=== PATIENT | female | born 1960 | race Caucasian/White ===

== ENCOUNTER 2018-01-26 20:30 | Outpatient (CLI) | payer MEDICARE | END 2018-01-26 20:31 | disposition home or self-care (01) | LOC: SLEEPLAB 20:30 | PROVIDERS: ATTEND Family Medicine | DX: G47.33 Obstructive sleep apnea (adult) (pediatric) (principal) | CPT/HCPCS: 95810 ==

== ENCOUNTER 2018-02-26 19:30 | Outpatient (CLI) | payer MEDICARE, MEDICAID | END 2018-02-26 19:31 | disposition home or self-care (01) | LOC: SLEEPLAB 19:30 | PROVIDERS: ATTEND Family Medicine | DX: G47.33 Obstructive sleep apnea (adult) (pediatric) (principal) | CPT/HCPCS: 95811 ==

== ENCOUNTER 2018-06-21 10:30 | Outpatient (CLI) | payer MEDICARE, MEDICAID ==
--- NOTE | 2018-06-21 11:51 | MMO ---
Bilateral MAMMO Bilat Screen DDI. CLINICAL HISTORY: Patient is 57 years old and is seen for screening. The patient has no family history of breast cancer. The patient has no personal history of cancer. The patient has a history of Implants in 2012. There are bilateral retro-pectoral saline implants VIEWS: The views performed were: bilateral craniocaudal; bilateral mediolateral oblique; and bilateral Implant displaced. This study has been interpreted with the assistance of computer-aided detection. MAMMOGRAM FINDINGS: There are scattered fibroglandular densities. Finding 1: Normal implants are present.. Finding 2: There is a mass with circumscribed margins and associated coarse popcorn-like calcifications and biopsy clip seen in the lower-inner region of the right breast. There are no suspicious masses, suspicious calcifications, or new areas of architectural distortion. IMPRESSION: THERE IS NO MAMMOGRAPHIC EVIDENCE OF MALIGNANCY. A ROUTINE FOLLOW-UP MAMMOGRAM IN 1 YEAR IS RECOMMENDED. ACR BI-RADS Category 2 - Benign finding MAMMOGRAPHY NOTE: 1. A negative mammogram report should not delay a biopsy if a dominant of clinically suspicious mass is present. 2. Approximately 10% to 15% of breast cancers are not detected by mammography. 3. Adenosis and dense breasts may obscure an underlying neoplasm.
--- NOTE | 2018-06-21 16:43 | MRI ---
EXAM: Cervical spine MRI Without contrast. HISTORY: Cervalgia COMPARISON: None. FINDINGS: Multiplanar multisequence MRI examination of the cervical spine is performed. There is a 1.7 x 1.7 x 4.1 cm diameter arachnoid cyst posteriorly just to the left of midline in the posterior fossa. No significant malalignment. No evidence for significant abnormal marrow signal. No evidence for spinal cord mass or abnormal signal within the spinal cord. Visualized lower brain and neck soft tissues show no significant acute process. C2-C3 level: No significant central canal, lateral recess, or foraminal stenosis. C3-C4 level: No significant central canal, lateral recess, or foraminal stenosis. C4-C5 level: Diffuse disc osteophytosis with minimal indention of the ventral thecal sac and mild rig ht foraminal stenosis. C5-C6 level: Disc osteophytosis more marked in the left paracentral region with minimal ventral later al recess stenosis and bilateral foraminal stenosis worse on the left side. C6-C7 level: Diffuse disc osteophytosis and facet arthrosis. Bilateral foraminal stenosis and mild bi lateral recess stenosis. C7-T1 level: No significant central canal, lateral recess, or foraminal stenosis. IMPRESSION: Multilevel variable severity disc osteophytosis with mostly lateral recess and foraminal stenosis. Left posterior fossa arachnoid cyst adjacent to the midline.
== END 2018-06-21 10:31 | disposition home or self-care (01) ==
LOC: BICMRI 10:30 → SCSMAMMO 10:31
PROVIDERS: ATTEND Family Medicine
DX: Z12.31 Encounter for screening mammogram for malignant neoplasm of breast (principal); M54.2 Cervicalgia; M25.78 Osteophyte, vertebrae; M48.02 Spinal stenosis, cervical region; G93.0 Cerebral cysts; Z98.82 Breast implant status
CPT/HCPCS: 72141; 77067

== ENCOUNTER 2018-10-02 14:55 | Emergency (ER) | payer MEDICARE, MEDICAID ==
[2018-10-02] MEDS ORDERED: Bupivacaine 0.5% 10 ML VIAL ONE (15:12)
[2018-10-02] MEDS ORDERED: Ketorolac Tromethamine 30 MG/ML VIAL ONE (15:14)
--- NOTE | 2018-10-02 15:39 | RAD ---
Exam:3 views left hand HISTORY: Fracture. Pain. COMPARISON: None FINDINGS: Joint spaces are preserved. Nondisplaced fracture involving the distal phalanx of the third digit. Soft tissue swelling at the distal aspect of the third digit. Additional fractures are not appreciated. Nonspecific lucency at the base of the first metacarpal and midportion of the scaphoid b one. IMPRESSION: Nondisplaced fracture involving the distal aspect of the third digit. Associated soft tis shala swelling.
== END 2018-10-02 16:30 | disposition home or self-care (01) ==
LOC: ERS 14:55
DX: S69.92XD Unspecified injury of left wrist, hand and finger(s), subsequent encounter (principal); E78.5 Hyperlipidemia, unspecified; F41.9 Anxiety disorder, unspecified; Z79.899 Other long term (current) drug therapy; X58.XXXD Exposure to other specified factors, subsequent encounter
CPT/HCPCS: 64450; 96372; J1885; J3490

== ENCOUNTER 2018-10-26 12:24 | Outpatient (CLI) | payer MEDICARE, MEDICAID ==
--- NOTE | 2018-10-26 13:37 | MRI ---
EXAM: MRI of the brain without and with contrast HISTORY: Unsteadiness and abnormal gait COMPARISON: None TECHNIQUE: Multiplanar multisequence MR images were obtained of the brain without and with IV contras t. FINDINGS: The brain demonstrates normal signal intensity on all obtained sequences. No restricted diffusion. No abnormal enhancement. No hydronephrosis. No extra-axial fluid collection or intracranial hemorrhage. The expected flow voids are present. Corpus callosum, pituitary, and craniocervical junction are within normal limits. The calvarium and overlying soft tissues are unremarkable. The paranasal sinuses are well aerated. There is opacification of the left mastoid air cells. IMPRESSION: 1. No evidence of acute intracranial abnormality. 2. Left mastoid air cell opacification
== END 2018-10-26 12:25 | disposition home or self-care (01) ==
LOC: SCSMRI 12:24
PROVIDERS: ATTEND Psychiatry & Neurology Neurology
DX: R26.9 Unspecified abnormalities of gait and mobility (principal); R93.0 Abnormal findings on diagnostic imaging of skull and head, not elsewhere classified
CPT/HCPCS: 70553; 82565

== ENCOUNTER 2018-12-21 06:51 | Outpatient (CLI) | payer MEDICARE, MEDICAID ==
[2018-12-21 15:21] LABS: #Basophils 0.1 thou/uL (0.0-0.2); #Eosinphils 0.6 thou/uL (0.0-0.7); #Lymphocytes 1.5 thou/uL (1.20-3.40); #Monocytes 0.5 thou/uL (0.11-0.59); #Neutrophils 4.1 thou/uL (1.40-6.50); %Basophils 0.8 % (0.0-1.0); %Eosinophils 8.9 % (0.0-10.0); %Lymphocytes 21.5 % (21.0-51.0); %Monocytes 7.1 % (0.0-10.0); %Neutrophils 61.6 % (42.0-75.0); Hemoglobin 15.1 g/dL (12.0-16.0); Mean Corpuscular HGB CONC 33.7 g/dL (32.0-36.0); Mean Corpuscular Hemoglobin 31.2 pg (27.0-31.0); Mean Corpuscular Volume 92.7 fL (78.0-98.0); Mean Platelet Volume 7.1 fL (7.4-10.4); Platelet Count 205 thou/uL (130-400); RBC Distribution Width 12.2 % (11.5-14.5); Red Blood Cell (RBC) Count 4.85 mill/uL (4.20-5.40); White Blood Cell (WBC) Count 6.7 thou/uL (4.8-10.8)
--- NOTE | 2018-12-23 16:26 | EKG ---
Test Reason : Blood Pressure : / mmHG Vent. Rate : 065 BPM Atrial Rate : 065 BPM P-R Int : 148 ms QRS Dur : 104 ms QT Int : 400 ms P-R-T Axes : 061 -52 056 degrees QTc Int : 416 ms Normal sinus rhythm Left anterior fascicular block Abnormal ECG No previous ECGs available Confirmed by DR. Bhupinder THACKER ([id number]) on 12/23/2018 4:25:59 PM Referred By: SARAH Confirmed By:DR. Bhupinder THACKER
== END 2018-12-21 06:52 | disposition home or self-care (01) ==
LOC: LABBT 06:51
PROVIDERS: ATTEND Orthopaedic Surgery Hand Surgery
DX: Z01.818 Encounter for other preprocedural examination (principal); G56.01 Carpal tunnel syndrome, right upper limb
CPT/HCPCS: 85025; 93005; 93010

== ENCOUNTER → 2018-12-25 | Day surgery (SDC) | payer MEDICARE, MEDICAID ==
[2018-12-21 14:40] VITALS: BMI 34.7
[~2018-12-25] MED LIST: Bacitracin Zinc Ointment 30 gm TUBE ONE; Betamet Acet/Betamet Na Ph 30 MG/5 ML VIAL ONE; Bupivacaine PF 0.5% 30 ML VIAL ONE; Fentanyl 100 MCG/2 ML VIAL ONE; Ketorolac Tromethamine 30 MG/ML VIAL ONE; Midazolam HCl 2 mg/2 ml Vial ONE; Ondansetron PF 4 MG/2 ML Vial ONE; PROPOFOL 200 MG/20 ML VIAL ONE; Sodium Chloride 0.9% 10 ML ONE
--- NOTE | 2018-12-25 11:47 | OP ---
DATE OF PROCEDURE: 12/25/2018 PREOPERATIVE DIAGNOSIS: Right carpal tunnel syndrome. POSTOPERATIVE DIAGNOSIS: Right carpal tunnel syndrome. FINDINGS: Tight transverse carpal ligament with flattened median nerve, stippling and hourglass formation from the sagittal plane in the sagittal plane view, 2 cm segment underneath the transverse carpal ligament. PROCEDURES PERFORMED: 1. Carpal tunnel release. 2. Celestone application (prednisone into the carpal tunnel). COMPLICATIONS: None. TOURNIQUET TIME: 10 minutes. ESTIMATED BLOOD LOSS: 5 mL. INDICATIONS: Carpal tunnel syndrome clinically and by EMG, failed conservative treatment of all types. Surgeon. ANESTHESIA: General LMA technique, augmented by a total of 20 mL of 0.5% Marcaine, 10 given prior to the incision and 10 after the incision was closed. DESCRIPTION OF PROCEDURE: After successful general endotracheal anesthesia, the limb was prepped and draped. We gave the time-out appropriately, exsanguinated the limb, inflated the tourniquet and gave the 10 mL of 0.5% Marcaine prior to incision. Standard incision was made in line with the ring finger from Garcia's cardinal line distally to 5 mm proximal to the palmar wrist flexion crease proximally. We carried through skin and subcutaneous tissue, identified tight transverse carpal ligament, which was very tight and released it just ulnar to the palmaris longus insertion. We then released it from the midportion distally and spared all branches of the median nerve including the motor, which was a type I take-off. We then dissected and lifted up the skin, visualized the transverse carpal ligament from the midportion distally and released it with combination of Cumberland blade and tenotomy scissors. I placed 3 mL of Celestone in the wound. It was here we saw the 2 cm segment that was flattened with stippling and hourglass formation. We released the tourniquet, obtained hemostasis, closed the wound with interrupted 4-0 nylon and injected with remainder of the Marcaine. We used Celestone before closure and the patient left the operating room without evidence of anesthetic or operative complication. Job ID: [id number]
== END ==
LOC: SDC 06:08
PROVIDERS: ATTEND Orthopaedic Surgery Hand Surgery
PROC: 01N50ZZ Release Median Nerve, Open Approach (ICD-10-PCS; principal; 2018-12-25)
DX: G56.03 Carpal tunnel syndrome, bilateral upper limbs (principal); E78.5 Hyperlipidemia, unspecified; F32.9 Major depressive disorder, single episode, unspecified; M81.0 Age-related osteoporosis without current pathological fracture; M19.90 Unspecified osteoarthritis, unspecified site; F41.9 Anxiety disorder, unspecified; F10.21 Alcohol dependence, in remission; Z87.891 Personal history of nicotine dependence; Z79.899 Other long term (current) drug therapy
CPT/HCPCS: J0690; J0702; J1885; J2250; J2405; J2704; J3010; J3490; S0020